=== PATIENT | female | born 2000 | race Caucasian/White ===

== ENCOUNTER 2020-11-07 21:27 | Emergency (ER) | payer BC ==
[~2020-11-07] VITALS: Ht 152.4 cm; Wt 59.0 kg
[~2020-11-07 21:27] MED LIST: no meds
[2020-11-07 21:55] VITALS: BP_SYST 114
[2020-11-07 22:23] VITALS: BP_SYST 114
== END 2020-11-07 22:20 | disposition home or self-care (01) ==
LOC: SED 21:27
DX: N39.0 Urinary tract infection, site not specified (principal)
CPT/HCPCS: 81002; 81025; 99283